=== PATIENT | female | born 2000 | race Caucasian/White ===

== ENCOUNTER 2022-04-27 10:21 | Emergency (ER) | payer MEDICAID ==
[~2022-04-27] VITALS: Ht 165.1 cm; Wt 112.0 kg
[2022-04-27] MEDS ORDERED: LIDOCAINE HCL/PF 1% 10 MG/ML 5ML VIAL INFIL ONE (11:00)
[2022-04-27] MEDS ORDERED: ACETAMINOPHEN WITH CODEINE 300/30MG TABLET PO ONE (11:00)
[2022-04-27] MEDS ORDERED: BACITRACIN ZINC OINT UDPKT TOP ONE (11:00)
[2022-04-27] MEDS ORDERED: IBUP-2029 MT (12:40)
[2022-04-27] MEDS ORDERED: CLIN-194 MT (12:40)
[2022-04-27 13:15] VITALS: BP 121/65
== END 2022-04-27 13:15 | disposition home or self-care (01) ==
LOC: ER 10:21
DX: L05.01 Pilonidal cyst with abscess (principal); I10 Essential (primary) hypertension
CPT/HCPCS: 10060; 81025; 99283; J3490

== ENCOUNTER 2024-05-29 17:10 | Emergency (ER) | payer MEDICAID ==
[~2024-05-29] VITALS: Ht 167.6 cm; Wt 109.0 kg
[~2024-05-29 17:10] MED LIST: CLIN-194 MT; IBUP-2029 MT
[2024-05-29 17:25] VITALS: BP 147/83; PULSE 85; RESP 20; TEMP 98.6; O2SAT 100
[2024-05-29] MEDS ORDERED: LIDOCAINE HCL/PF 1% 10 MG/ML 5ML VIAL INFIL ONE (20:45)
[2024-05-29] MEDS ORDERED: CEPH500T MT (20:53)
[2024-05-29] MEDS ORDERED: ACET-2708 MT (20:53)
== END 2024-05-29 22:11 | disposition home or self-care (01) ==
LOC: ER 17:10
DX: J86.9 Pyothorax without fistula (principal); I10 Essential (primary) hypertension
CPT/HCPCS: 76604; 99284